=== PATIENT | female | born 1975 | race Hispanic/Latino ===

== ENCOUNTER 2017-02-08 18:36 | Emergency (ER) | payer BC ==
--- NOTE | 2017-02-08 19:15 | ED PDOC ---
Lower Extremity Pain/Injury Time Seen by Provider: 02/08/17 18:39 Chief Complaint (Nursing): Lower Extremity Problem/Injury Chief Complaint (Provider): Left Leg Injury History Per: Patient History/Exam Limitations: no limitations Onset/Duration Of Symptoms: Hrs (x2) Current Symptoms Are (Timing): Still Present Additional Complaint(s): Desire Booth is a 41 year old female that presents to the ED with a chief complaint of left leg pain. Patient states that she was in [facility] around 17:15 and the ceiling was leaking due to rain, at which point she stepped forward with her left foot and slipped. Patient states that she fell into a split, and feels as though something "popped or pulled" in her left leg. She reports that her pain worsens when she walks. Past Medical History Reviewed: Historical Data, Nursing Documentation, Vital Signs - Medical History PMH: No Chronic Diseases - Family History Family History: States: Unknown Family Hx - Home Medications Home Medications: Ambulatory Orders Medication Instructions Recorded Ibuprofen [Motrin] 600 mg PO Q6 #20 tab 02/08/17 diaZEpam [Valium] 5 mg PO BID PRN #10 tab 02/08/17 oxyCODONE/Acetaminophen [Percocet 1 ea PO Q6 PRN #5 tab 02/08/17 5/325 mg Tab] - Allergies Allergies/Adverse Reactions: Allergies Allergy/AdvReac Type Severity Reaction Status Date / Time No Known Allergies Allergy Verified 02/08/17 18:58 Review of Systems Musculoskeletal: Positive for: Leg Pain (left leg pain) Physical Exam - Reviewed Nursing Documentation Reviewed: Yes Vital Signs Reviewed: Yes - Physical Exam Appears: Positive for: Non-toxic, No Acute Distress Head Exam: Positive for: ATRAUMATIC, NORMOCEPHALIC Skin: Positive for: Normal Color, Warm Eye Exam: Positive for: Normal appearance, EOMI, PERRL Extremity: Positive for: Normal ROM (full ROM left leg), Tenderness (TTP over left hamstring), Other (Left hamstring muscle belly appears firm. No ecchymosis. ) Neurologic/Psych: Positive for: Alert, Oriented. Negative for: Motor/Sensory Deficits Medical Decision Making Medical Decision Making: Impression: Left Leg Injury Plan: * Valium 5 mg PO * Toradol 30 mg IM * Reevaluation EXAM: US Left Lower Extremity Non-Vascular, Complete CLINICAL HISTORY: 41 years old, female; Injury or trauma; Fall; Initial encounter; Blunt trauma; Upper leg; Left; Injury date: Today; Additional info: Hamstring tear TECHNIQUE: Real-time ultrasound scan of the left thigh with image documentation. COMPARISON: No relevant prior studies available. FINDINGS: Soft tissues: 5.8 x 0.8 cm hypoechoic lesion with internal echoes within posterior thigh. No foreign body. IMPRESSION: 1. Soft tissue lesion, nonspecific but compatible with hematoma. DDX: Abscess, cystic neoplasm. Followup to resolution to exclude underlying pathology. 2. Incidental/non-acute findings are described above Pt educated on results and demonstrated full understanding. Given Ortho follow up and supportive care advised. Scribe Attestation: Documented by Holly Haley, acting as a scribe for Parul Shoemaker PA-C. Provider Scribe Attestation: All medical record entries made by the Scribe were at my direction and personally dictated by me. I have reviewed the chart and agree that the record accurately reflects my personal performance of the history, physical exam, medical decision making, and the department course for this patient. I have also personally directed, reviewed, and agree with the discharge instructions and disposition. Disposition - Clinical Impression Clinical Impression: Partial hamstring tear - Patient ED Disposition Is Patient to be Admitted: No - Disposition Disposition: Routine/Home Disposition Time: 21:17 Condition: STABLE Forms: [employer] (French) - POA Present On Arrival: None
[2017-02-08] MEDS ORDERED: Morphine 4 MG/ML VIAL IM ONE (20:48)
--- NOTE | 2017-02-08 21:03 | US ---
EXAM: US Left Lower Extremity Non-Vascular, Complete CLINICAL HISTORY: 41 years old, female; Injury or trauma; Fall; Initial encounter; Blunt trauma; Upper leg; Left; Injury date: Today; Additional info: Hamstring tear TECHNIQUE: Real-time ultrasound scan of the left thigh with image documentation. COMPARISON: No relevant prior studies available. FINDINGS: Soft tissues: 5.8 x 0.8 cm hypoechoic lesion with internal echoes within posterior thigh. No foreign body. IMPRESSION: 1. Soft tissue lesion, nonspecific but compatible with hematoma. DDX: Abscess, cystic neoplasm. Followup to resolution to exclude underlying pathology. 2. Incidental/non-acute findings are described above.
== END 2017-02-08 22:10 | disposition home or self-care (01) ==
LOC: H.ER 18:36
DX: S76.312A Strain of muscle, fascia and tendon of the posterior muscle group at thigh level, left thigh, initial encounter (principal); W19.XXXA Unspecified fall, initial encounter; Y92.89 Other specified places as the place of occurrence of the external cause
CPT/HCPCS: 76881; 96372; 99282; J1885